=== PATIENT | female | born 1950 | race Hispanic/Latino ===

== ENCOUNTER → 2023-05-31 | Outpatient (CLI) | payer OTHER ==
[~2023-05-31] MED LIST: ATOR10TA69 PO; BRIM5DRO5 OP; DORZ10DR32 OU; LOSA50TA64 PO
== END | disposition home or self-care (01) ==
LOC: RAH 12:26
PROVIDERS: ATTEND Orthopaedic Surgery
DX: M17.11 Unilateral primary osteoarthritis, right knee (principal); M25.761 Osteophyte, right knee
CPT/HCPCS: 73700

== ENCOUNTER 2023-06-01 06:39 | Observation (INO) | payer OTHER ==
[2023-05-27 13:02] LABS: BASOPHILS % (AUTO) 0.3 % (0.0-5.0); EOSINOPHILS % (AUTO) 0.6 % (0.0-8.0); HEMATOCRIT 44.9 % (36-48); LYMPHOCYTES % (AUTO) 14.2 % (21.0-51.0); MEAN CORPUSCULAR HEMOGLOBIN 30.3 pg (27.0-33.0); MEAN CORPUSCULAR HGB CONC 32.3 g/dL (32.0-36.0); MEAN CORPUSCULAR VOLUME 93.9 fL (79-99); MONOCYTES % (AUTO) 6.1 % (3.0-13.0); NEUTROPHILS % (AUTO) 78.3 % (40.0-77.0); PLATELET COUNT (AUTO) 236 K/uL (130-400); RED BLOOD CELL COUNT(AUTO) 4.78 MIL/uL (4.00-5.50); RED CELL DISTRIBUTION WIDTH 13.5 % (11.0-15.5); WHITE BLOOD COUNT (AUTO) 10.5 K/uL (4.8-10.8)
[2023-05-27 13:18] LABS: INR 0.93 (0.85-1.15); PROTHROMBIN TIME 10.8 SEC (9.6-11.6)
[2023-05-27 13:19] LABS: PARTIAL THROMBOPLASTIN TIME 27.1 SEC (26.3-35.5)
[2023-05-27 13:22] LABS: CREATININE 0.9 mg/dL (0.5-1.5); POTASSIUM 4.5 mmol/L (3.5-5.1)
[2023-05-27 13:38] VITALS: BP 162/66; PULSE 68; RESP 16
[~2023-06-01] VITALS: Ht 157.5 cm; Wt 69.3 kg
[2023-06-01] VITALS (25 sets, daily range): BP systolic 126–170; BP diastolic 48–77; PULSE 56–82; RESP 11–20
[~2023-06-01 06:39] MED LIST changes: +CEFAZOLIN SODIUM 1 GM VIAL IVPB PRN
[2023-06-01] MEDS: LACTATED RINGERS 1000ML 1,000 ML IV SCH ×2 (07:44→15:57)
[2023-06-01] MEDS ORDERED: ROPIVACAINE 0.5% 5MG/ML 30ML IJ ONE (10:36)
[2023-06-01] MEDS ORDERED: MORPHINE PF 100MG/10ML AMP IV ONE (10:37)
[2023-06-01] MEDS ORDERED: GLYCOPYRROLATE 1 MG/5 ML SYRINGE ONE (10:39)
[2023-06-01] MEDS ORDERED: LIDOCAINE PF 100MG/5ML (2%) SYRINGE 5ML ONE (10:39)
[2023-06-01] MEDS ORDERED: ONDANSETRON 4MG INJ ONE (10:39)
[2023-06-01] MEDS ORDERED: NEOSTIGMINE 5MG/5ML SYR IV ONE (10:39)
[2023-06-01] MEDS ORDERED: PROPOFOL 10 MG/ML 20ML VIAL IV ONE (10:39)
[2023-06-01] MEDS ORDERED: FENTANYL CITRATE PF 50 MCG/1 ML 2ML VIAL ONE (10:39)
[2023-06-01] MEDS ORDERED: SUCCINYLCHOLINE CHLORIDE 20 MG/ML 10 ML VIAL ONE (10:39)
[2023-06-01] MEDS ORDERED: DEXAMETHASONE SOD PHOSPHATE 10MG/ML 1ML VIAL ONE (10:39)
[2023-06-01] MEDS ORDERED: MIDAZOLAM HCL 1 MG/ML 2ML VIAL ONE (10:40)
[2023-06-01] MEDS ORDERED: ROCURONIUM 10MG/1ML SYR 10 MG/ML ML ONE (10:40)
[2023-06-01] MEDS ORDERED: TRANEXAMIC ACID 1000MG/10ML ONE (10:56)
[2023-06-01] MEDS ORDERED: EPHEDRINE SULFATE 50 MG/ML AMPULE ONE (12:55)
[2023-06-01] MEDS ORDERED: ONDANSETRON 4MG INJ IVP PRN (14:30)
[2023-06-01] MEDS ORDERED: POTASSIUM CHLORIDE 20MEQ/100ML 100 ML IV PRN (14:30)
[2023-06-01] MEDS ORDERED: POTASSIUM CHLORIDE 10% ELIXIR 20 MEQ/15 ML UDCUP PO PRN (14:30)
[2023-06-01] MEDS ORDERED: MORPHINE 4 MG SYG IVP PRN (14:30)
[2023-06-01] MEDS ORDERED: ACETAMINOPHEN 1,000 MG/100 ML VIAL IV ONE (14:45)
[2023-06-01] MEDS: 0.9%NACL 1000ML 1,000 ML IV SCH ×2 (15:58→21:24)
[2023-06-01] MEDS: ACETAMINOPHEN 1,000 MG/100 ML VIAL IV SCH ×2 (15:59→19:12)
[2023-06-01] MEDS: IBUPROFEN 800MG + NS 250ML IV SCH (17:18)
[2023-06-01] MEDS: BRIMONIDINE TARTRATE 0.2% 5 ML BOTTLE OP SCH (20:10)
[2023-06-01] MEDS: DORZOLAMIDE HCL/TIMOLOL MALEAT DROPS 10 ML BOTTLE OU SCH (20:11)
[2023-06-01] MEDS: ASPIRIN 81 MG EC TAB PO SCH (20:11)
[2023-06-01] MEDS: FAMOTIDINE 20MG TAB PO SCH (20:11)
[2023-06-01] MEDS: HYDROCODONE/ACETAMINOPHEN 5/325 MG TAB PO PRN (20:13)
[2023-06-01] MEDS: CEFAZOLIN SODIUM 2 GM VIAL IVPB SCH (20:19)
[2023-06-02] VITALS (7 sets, daily range): BP systolic 102–117; BP diastolic 44–59; PULSE 62–77; RESP 18–20; O2SAT 96
[2023-06-02] MEDS: IBUPROFEN 800MG + NS 250ML IV SCH ×2 (00:24→08:43)
[2023-06-02] MEDS: ACETAMINOPHEN 1,000 MG/100 ML VIAL IV SCH (02:08)
[2023-06-02] MEDS: CEFAZOLIN SODIUM 2 GM VIAL IVPB SCH (04:07)
[2023-06-02 05:05] LABS: MEAN CORPUSCULAR HEMOGLOBIN 30.3 pg (27.0-33.0); MEAN CORPUSCULAR HGB CONC 32.2 g/dL (32.0-36.0); RED BLOOD CELL COUNT(AUTO) 3.83 MIL/uL (4.00-5.50); RED CELL DISTRIBUTION WIDTH 13.4 % (11.0-15.5); WHITE BLOOD COUNT (AUTO) 10.8 K/uL (4.8-10.8)
[2023-06-02 05:23] LABS: CREATININE 0.9 mg/dL (0.5-1.5); POTASSIUM 3.5 mmol/L (3.5-5.1)
[2023-06-02] MEDS: POLYETHYLENE GLYCOL 3350 17 GM POWD.PACK PO SCH (08:42)
[2023-06-02] MEDS: ASPIRIN 81 MG EC TAB PO SCH ×2 (08:42→20:29)
[2023-06-02] MEDS: BRIMONIDINE TARTRATE 0.2% 5 ML BOTTLE OP SCH ×2 (08:43→20:29)
[2023-06-02] MEDS: DORZOLAMIDE HCL/TIMOLOL MALEAT DROPS 10 ML BOTTLE OU SCH ×2 (08:43→20:30)
[2023-06-02] MEDS: LOSARTAN 50 MG TABLET PO SCH (09:00)
[2023-06-02] MEDS: 0.9%NACL 1000ML 1,000 ML IV SCH (10:30)
[2023-06-02] MEDS: KCL 20 MEQ ERTAB PO PRN ×2 (12:19→16:01)
[2023-06-02] MEDS: HYDROCODONE/ACETAMINOPHEN 5/325 MG TAB PO PRN (12:20)
[2023-06-02] MEDS: HYDROCODONE/ACETAMINOPHEN 10/325 MG TAB PO PRN ×2 (15:13→20:29)
[2023-06-02] MEDS: FAMOTIDINE 20MG TAB PO SCH (20:27)
[2023-06-03 03:32] VITALS: BP 129/55; PULSE 71; RESP 18
[2023-06-03] MEDS: HYDROCODONE/ACETAMINOPHEN 10/325 MG TAB PO PRN (06:05)
[2023-06-03 08:00] VITALS: BP 112/54; PULSE 76; RESP 18
[2023-06-03 08:40] VITALS: O2SAT 94
[2023-06-03] MEDS: BRIMONIDINE TARTRATE 0.2% 5 ML BOTTLE OP SCH (09:00)
[2023-06-03] MEDS: LOSARTAN 50 MG TABLET PO SCH (09:00)
[2023-06-03] MEDS: DORZOLAMIDE HCL/TIMOLOL MALEAT DROPS 10 ML BOTTLE OU SCH (09:00)
[2023-06-03] MEDS: ASPIRIN 81 MG EC TAB PO SCH (09:14)
[2023-06-03] MEDS: POLYETHYLENE GLYCOL 3350 17 GM POWD.PACK PO SCH (09:14)
[2023-06-03 12:03] VITALS: BP 141/65; PULSE 74; RESP 20
[2023-06-03] MEDS: HYDROCODONE/ACETAMINOPHEN 5/325 MG TAB PO PRN (14:09)
[2023-06-04] MEDS ORDERED: BISACODYL 10 MG SUPP.RECT RC PRN (14:30)
== END 2023-06-03 16:30 | disposition home health service (06) ==
LOC: DAH 06:39 → DAHIP 06:40 → 4BH 15:35
PROVIDERS: ADMIT Orthopaedic Surgery; ATTEND Orthopaedic Surgery
DX: M17.11 Unilateral primary osteoarthritis, right knee (principal); Z20.822 Contact with and (suspected) exposure to COVID-19; I10 Essential (primary) hypertension; Z79.899 Other long term (current) drug therapy; Z98.890 Other specified postprocedural states; Z79.82 Long term (current) use of aspirin
CPT/HCPCS: 80048 ×2; 85025; 85610; 85730; 87426; 36415 ×2; 87641; 27447; 96365; 96366 ×3; 96367; 96368; 64447; 85027; 97161; 97039 ×3; 97116 ×3; 97530 ×3; A6260; C1776 ×3; G0378 ×46; A4663; J7030; J7120 ×2; J3010; J0690 ×3; J3490 ×3; J1100; J2710; J0330; J2001; J2250; J2704; J2274; J2405; J2795; J1741 ×3; A6223; G0168; A4649 ×3; A6212; A4930; A5120 ×2; A4215; A4223; A4222; A4221